=== PATIENT | female | born 1960 | race Caucasian/White ===

== ENCOUNTER → 2020-03-08 13:46 | Outpatient (CLI) | payer OTHER, SELFPAY ==
[2020-02-23 13:41] VITALS: BMI 66.9
[2020-03-02 12:48] VITALS: BMI 67.1
--- NOTE | 2020-03-08 13:48 | CDU_ITS ---
Reason For Study: Suspected carotid stenosis Rt. Velocities/BP Lt. Velocities/BP Prox CCA 102.1/17.3 cm/sec. Prox CCA 119.3/24.3 cm/sec. Mid CCA 83.9/16 cm/sec. Mid CCA 95.5/13.3 cm/sec. Dist CCA 74.7/17.3 cm/sec. Dist CCA 75.3/20 cm/sec. Prox ICA 34.3/12.6 cm/sec. Prox ICA 56.9/13.9 cm/sec. Mid ICA 78.3/26.7 cm/sec. Mid ICA 59.3/17.6 cm/sec. Dist ICA 79.5/25.6 cm/sec. Dist ICA 47.6/16.8 cm/sec. Rt. ICA/CCA = 0.9. Lt. ICA/CCA = 0.6. Prox ECA 72.1/6.9 cm/sec. Prox ECA 64.2/6.5 cm/sec. Rt. Vert. 50/16 cm/sec. Lt. Vert. 69.6/21.2 cm/sec. Right Extracranial There is intimal thickening but no significant atherosclerotic plaque noted in the right common carotid artery. There is intimal thickening but no significant atherosclerotic plaque noted in the right internal carotid artery. There is intimal thickening but no significant atherosclerotic plaque noted in the right external carotid artery. Antegrade flow is noted in the right vertebral artery. Left Extracranial There is intimal thickening but no significant atherosclerotic plaque noted in the left common carotid artery. There is intimal thickening but no significant atherosclerotic plaque noted in the left internal carotid artery. There is intimal thickening but no significant atherosclerotic plaque noted in the left external carotid artery. Antegrade flow is noted in the left vertebral artery. Procedure Carotid Duplex 00711. This is a Carotid Duplex examination using B-mode, color flow and specral Doppler. Exam performed in department. Interpretation Summary Intimal thickening right proximal internal carotid artery with less than 50% stenosis Less than 50% stenosis right external carotid artery Intimal thickening left proximal internal carotid artery with less than 50% stenosis Less than 50% stenosis left external carotid artery Patent and antegrade vertebrals bilaterally Ordering Physician: Yasmani Barry Performed By: Lashaun Robles RVT
--- NOTE | 2020-03-08 14:23 | ECHOCS_ITS ---
Reason For Study: Dyspnea/SOB Procedure This was a 2D Doppler, Color Flow transthoracic echocardiogram. The study was technically difficult. Contrast injection was performed. Patient Scanned Supine. Exam performed in department. Left Ventricle Normal LV size. The estimated ejection fraction is 60-65 %. No evidence for diastolic dysfunction. No regional wall motion abnormalities noted. Right Ventricle Normal RV size. Normal systolic function. Atria Normal left atrium. Normal right atrium. No doppler evidence for ASD. Mitral Valve There is no mitral valve stenosis. No mitral valve insufficiency. Tricuspid Valve There is no tricuspid stenosis. Trivial tricuspid valve insufficiency. Pulmonary artery systolic pressure is 25 mmHg. Aortic Valve Trisinus/trileaflet aortic valve. There is no aortic stenosis. No aortic valve insufficiency. Pulmonic Valve There is no pulmonic valvular stenosis. No pulmonic valve insufficiency. Great Vessels Normal aortic root. Pericardium/Pleural No pericardial effusion. Medication 22 gauge I.V. with prn adaptor inserted into left arm. Diluted definity 2ml given slow IV push to enhance endocardial definition. MMode/2D Measurements & Calculations LVIDd: 3.8 cm IVSd: 1.3 cm LA dimension: 3.1 cm LVIDs: 2.4 cm LVPWd: 1.4 cm FS: 38.3 % LAV(MOD-bp): 46.7 ml LA A4 area: 17.6 cm2 RA A4 area: 12.4 cm2 LAV(MOD-bp) Indexed: 20.1 ml/m2 LAV(MOD-sp2): 45.8 ml LAV(MOD-sp4): 45.7 ml Time Measurements MV dec time: 0.22 sec Doppler Measurements & Calculations MV E max adelso: 77.0 cm/sec Lat Peak E' Adelso: 9.0 cm/sec Med Peak E' Adelso: 7.0 cm/sec MV A max adelso: 112.9 cm/sec E/E' lat: 8.6 E/E' med: 11.0 MV E/A: 0.68 MV V2 max: 119.4 cm/sec MV P1/2t max adelso: 88.0 cm/sec Ao V2 max: 154.7 cm/sec MV max P.7 mmHg MV P1/2t: 75.8 msec Ao max P.6 mmHg MV V2 mean: 67.4 cm/sec MV dec slope: 339.8 cm/sec2 MV mean P.1 mmHg MV V2 VTI: 22.5 cm MVA(P1/2t): 2.9 cm2 LV V1 max: 112.1 cm/sec PA V2 max: 111.7 cm/sec TR max adelso: 211.6 cm/sec LV V1 max P.0 mmHg TR max P.9 mmHg Interpretation Summary The estimated ejection fraction is 60-65 %. No evidence for diastolic dysfunction. Contrast injection was performed. Ordering Physician: Yasmani Barry Referring Physician: Yasmani Barry Performed By: Sergei Franco RCS
== END ==
PROVIDERS: Referring Provider Specialist; Visit Provider Specialist
DX: R06.02 Shortness of breath (principal); I65.29 Occlusion and stenosis of unspecified carotid artery
CPT/HCPCS: 93306; 93880; Q9957; A4216; C8929